=== PATIENT | male | born 1950 | race Caucasian/White ===

== ENCOUNTER 2020-09-23 15:23 | Outpatient (REF) | payer MEDICARE, SELFPAY ==
[2020-09-23 21:23] LABS: ALT 42 U/L (16-63); AST 19 U/L (15-37); Albumin 3.8 g/dL (3.4-5.0); Alkaline Phosphatase 78 U/L (46-116); BUN 19 mg/dL (7-18); Bilirubin, Total 0.6 mg/dL (0.2-1.0); Calcium 9.2 mg/dL (8.5-10.1); Calculated LDL 112 mg/dL (<100); Chloride 105 mmol/L (98-107); Cholesterol 184 mg/dL (<200); Glucose 122 mg/dL (74-106); HDL Cholesterol 38 mg/dL (40-60); Potassium 5.1 mmol/L (3.5-5.1); Sodium 141 mmol/L (136-145); Triglyceride 174 mg/dL (<150)
== END 2020-09-23 15:24 | disposition home or self-care (01) ==
LOC: NCHCN 15:23
PROVIDERS: PCP Family Medicine; Visit Provider Registered Nurse
DX: E78.5 Hyperlipidemia, unspecified (principal); I10 Essential (primary) hypertension; E66.9 Obesity, unspecified
CPT/HCPCS: 80053; 80061

== ENCOUNTER 2020-10-07 10:31 | Outpatient (REF) | payer MEDICARE, SELFPAY ==
[2020-10-07 14:03] LABS: ALT 36 U/L (16-63); AST 19 U/L (15-37); Albumin 3.7 g/dL (3.4-5.0); Alkaline Phosphatase 77 U/L (46-116); BUN 25 mg/dL (7-18); Bilirubin, Total 0.6 mg/dL (0.2-1.0); CREATININE 0.9 mg/dL (0.70-1.30); Calcium 8.9 mg/dL (8.5-10.1); Chloride 107 mmol/L (98-107); Glucose 123 mg/dL (74-106); Potassium 4.6 mmol/L (3.5-5.1); Sodium 142 mmol/L (136-145); Total Protein 6.6 g/dL (6.4-8.2)
== END 2020-10-07 10:32 | disposition home or self-care (01) ==
LOC: NCHCN 10:31
PROVIDERS: PCP Registered Nurse; Visit Provider Registered Nurse
DX: I10 Essential (primary) hypertension (principal)
CPT/HCPCS: 80053

== ENCOUNTER 2021-09-27 17:10 | Outpatient (REF) | payer MEDICARE, SELFPAY ==
[2021-09-27 16:53] LABS: Anion Gap 9.1 mmol/L (3-11); BUN 21 mg/dL (7-18); CO2 25.9 mmol/L (21.0-32.0); CREATININE 0.9 mg/dL (0.70-1.30); Calcium 9.3 mg/dL (8.5-10.1); Chloride 104 mmol/L (98-107); Glucose 124 mg/dL (74-106); Hemoglobin A1C 6.5 % (<5.7); Potassium 4.9 mmol/L (3.5-5.1); Sodium 139 mmol/L (136-145)
== END 2021-09-27 17:11 | disposition home or self-care (01) ==
LOC: NCHCN 17:10
PROVIDERS: PCP Registered Nurse; Visit Provider Registered Nurse
DX: R73.03 Prediabetes (principal)
CPT/HCPCS: 80048; 83036

== ENCOUNTER 2022-10-10 17:21 | Outpatient (REF) | payer MEDICARE, SELFPAY ==
[2022-10-10 15:21] LABS: Hemoglobin A1C 6.2 % (<5.7)
[2022-10-10 15:54] LABS: ALT 40 U/L (16-63); AST 24 U/L (15-37); Albumin 4.2 g/dL (3.4-5.0); Alkaline Phosphatase 91 U/L (46-116); Anion Gap 9.6 mmol/L (3-11); BUN 21 mg/dL (7-18); Bilirubin, Total 0.9 mg/dL (0.2-1.0); CO2 26.4 mmol/L (21.0-32.0); CREATININE 1.1 mg/dL (0.70-1.30); Calculated LDL 129 mg/dL (<100); Chloride 106 mmol/L (98-107); Cholesterol 208 mg/dL (<200); Estimated GFR 72.22 (mL/min/1.73m2); Glucose 130 mg/dL (74-106); HDL Cholesterol 47 mg/dL (40-60); Potassium 4.5 mmol/L (3.5-5.1); Sodium 142 mmol/L (136-145); TSH 1.19 uIU/mL (0.36-3.74); Triglyceride 164 mg/dL (<150)
[2022-10-11 10:45] LABS: Hepatitis C Ab w Rflx HCV PCR Negative (Negative)
== END 2022-10-10 17:22 | disposition home or self-care (01) ==
LOC: NCHCN 17:21
PROVIDERS: PCP Registered Nurse; Visit Provider Registered Nurse
DX: R73.03 Prediabetes (principal); I10 Essential (primary) hypertension; E78.5 Hyperlipidemia, unspecified; E66.8 Other obesity; Z11.59 Encounter for screening for other viral diseases
CPT/HCPCS: 80053; 80061; 86803; 83036; 84443

== ENCOUNTER 2023-11-11 13:21 | Outpatient (REF) | payer MEDICARE, SELFPAY ==
[2023-11-11 15:53] LABS: Hemoglobin A1C 6.1 % (<5.7)
[2023-11-11 16:21] LABS: ALT 31 U/L (16-63); AST 22 U/L (15-37); Albumin 3.8 g/dL (3.4-5.0); Alkaline Phosphatase 85 U/L (46-116); Anion Gap 7.6 mmol/L (3-11); BUN 28 mg/dL (7-18); Bilirubin, Total 0.8 mg/dL (0.2-1.0); CO2 27.4 mmol/L (21.0-32.0); CREATININE 1.2 mg/dL (0.70-1.30); Calcium 10.4 mg/dL (8.5-10.1); Calculated LDL 63 mg/dL (<100); Chloride 108 mmol/L (98-107); Cholesterol 121 mg/dL (<200); Estimated GFR 64.25 (mL/min/1.73m2); Glucose 128 mg/dL (74-106); HDL Cholesterol 47 mg/dL (40-60); Potassium 4.9 mmol/L (3.5-5.1); Sodium 143 mmol/L (136-145); Total Protein 7.1 g/dL (6.4-8.2); Triglyceride 58 mg/dL (<150)
[2023-11-11 16:25] LABS: COMMENT (LAB VIEW ONLY) 59.34 mg/dL; Microalb ug/mg Crea 13.5 ug/mg Cr
== END 2023-11-11 13:22 | disposition home or self-care (01) ==
LOC: NCHCN 13:21
PROVIDERS: PCP Registered Nurse; Visit Provider Nurse Practitioner Family
DX: E11.9 Type 2 diabetes mellitus without complications (principal)
CPT/HCPCS: 80053; 80061; 82043; 82570; 83036

== ENCOUNTER 2024-07-21 15:51 | Outpatient (REF) | payer MEDICARE, SELFPAY ==
[2024-07-21 15:45] LABS: COMMENT (LAB VIEW ONLY) 98.01 mg/dL; Microalb ug/mg Crea 21.9 ug/mg Cr
[2024-07-21 15:58] LABS: Abs Immature Grans 0.02 10^3/uL (0.0-0.06); Absolute Basophil Count 0.06 10^3/uL (0.0-0.2); Absolute Lymphocyte Count 1.19 10^3/uL (1.2-3.4); Absolute Monocyte Count 0.66 10^3/uL (0.1-0.8); Absolute Neutrophil Count 4.23 10^3/uL (1.2-6.7); Eosinophils % 1.6 %; HCT 46.5 % (40.0-50.0); HGB 15.3 g/dL (13.5-17.5); Immature Grans % 0.3 %; MCH 29.7 pg (27.0-33.0); MCHC 32.9 % (32.0-36.0); MCV 90 fL (80-95); MPV 11.7 fL (8.0-11.0); Monocytes % 10.5 %; Neutrophils % 67.6 %; Platelet Count 178 10^3/uL (130-400); RBC 5.15 10^6/uL (4.36-5.78); RDW-SD 46.5 fL; WBC 6.26 10^3/uL (4.4-10.8)
[2024-07-21 16:10] LABS: BUN 22 mg/dL (7-18); Calcium 9.3 mg/dL (8.5-10.1); Chloride 106 mmol/L (98-107); Estimated GFR 79.97 (mL/min/1.73m2); Glucose 96 mg/dL (74-106); Potassium 4.6 mmol/L (3.5-5.1); Sodium 142 mmol/L (136-145)
[2024-07-21 17:39] LABS: Hemoglobin A1C 5.9 % (<5.7)
== END 2024-07-21 15:52 | disposition home or self-care (01) ==
LOC: NCHCN 15:51
PROVIDERS: Orthopaedic Surgery; PCP Registered Nurse; Visit Provider Nurse Practitioner Family
DX: E11.9 Type 2 diabetes mellitus without complications (principal); Z01.818 Encounter for other preprocedural examination
CPT/HCPCS: 80048; 82040; 82043; 82570; 83036; 85025